=== PATIENT | female | born 1975 | race Caucasian/White ===

== ENCOUNTER 2017-02-25 21:13 | Emergency (ER) | payer OTHER ==
[2017-02-25] MEDS ORDERED: Sodium Chloride 0.9% 1000 ML 1,000 ML IV STA (21:57)
[2017-02-25] MEDS ORDERED: Zofran 4 MG/2 ML VIAL IV ONE (21:57)
[2017-02-25] MEDS ORDERED: Zofran 4 MG/2 ML VIAL ONE (22:05)
[2017-02-25] MEDS ORDERED: Sodium Chloride 0.9% 1000 ML 1,000 ML ONE (22:05)
--- NOTE | 2017-02-25 22:05 | ERPHSYRPT ---
- History of Present Illness Time Seen by Provider: 02/25/17 21:50 Historian: patient Exam Limitations: no limitations Patient Subjective Stated Complaint: PER PATIENT C/O INTERMITENT RIGHT UPPER QUAD PAIN WITH NAUSEA X5 MONTHS Triage Nursing Assessment: NO FEVER, VSS SLIGHTLY TACHY, FAMILY IN ROOM, AOX3, Physician History: FOR THE PAST 6 MONTHS PT HAS HAD CONSTANT RUQ ABDOMINAL PAIN SOMETIMES SHARP AND SOMETIMES ACHY WITH DAILY NAUSEA AND VOMITING AND OCCASIONAL DIARRHEA. PT VOMITED X3 TODAY WITHOUT BLOOD. LAST BM WAS TODAY AND NOT DIARRHEAL AND WAS WITHOUT BLOOD. PT HAD A CHOLECYSTECTOMY IN 2004 AT [facility]. PT DENIES SHORTNESS OF AIR, CHEST PAIN, FEVER. Allergies/Adverse Reactions: Penicillins Allergy (Unknown, Verified 02/25/17 22:03) Immunizations Up to Date: Yes - Review of Systems Constitutional: No Fever Respiratory: No Dyspnea Cardiac: No Chest Pain Abdominal/Gastrointestinal: Abdominal Pain, Nausea, Vomiting, Diarrhea ( OCCASIONAL) All Other Systems: Reviewed and Negative - Past Medical History Pertinent Past Medical History: No Neurological History: No Pertinent History ENT History: No Pertinent History Cardiac History: No Pertinent History Respiratory History: No Pertinent History Endocrine Medical History: No Pertinent History Musculoskeletal History: Arthritis GI Medical History: No Pertinent History History: No Pertinent History Psycho-Social History: Anxiety, Depression Female Reproductive Disorders: Endometriosis - Past Surgical History Past Surgical History: Yes Neuro Surgical History: No Pertinent History Cardiac: No Pertinent History Respiratory: No Pertinent History Gastrointestinal: Cholecystectomy Genitourinary: No Pertinent History Musculoskeletal: No Pertinent History Female Surgical History: No Pertinent History - Social History Smoking Status: Current every day smoker How long have you smoked: 1/2 PPD Exposure to second hand smoke: Yes Drug Use: none Patient Lives Alone: No - Female History Hx Last Menstrual Period: T-18 - Nursing Vital Signs Nursing Vital Signs: Initial Vital Signs Temperature 98.8 F Temperature Source Oral Pulse Rate 105 Respiratory Rate 12 Blood Pressure [Right Arm] 120/70 Pain Intensity 9 - Physical Exam General Appearance: alert Eye Exam: PERRL/EOMI Ears, Nose, Throat Exam: pharynx normal, moist mucous membranes Neck Exam: normal inspection Respiratory Exam: lungs clear Cardiovascular Exam: tachycardia Gastrointestinal/Abdomen Exam: soft, normal bowel sounds, tenderness (MILD RUQ ABDOMINAL TENDERNESS), No guarding Back Exam: normal range of motion Extremity Exam: normal inspection, No pedal edema Neurologic Exam: alert, cooperative Skin Exam: warm, dry SpO2 Interpretation: normal SpO2: 98 Oxygen Delivery: Room Air - Course Nursing assessment & vital signs reviewed: Yes EKG Interpreted by Me: RATE ([id number]), Sinus Tach, NORMAL AXIS, NORMAL INTERVALS - CT Exams Abdomen/Pelvis CT Interpretation: Tele-radiologist Report (NO ACUTE FINDINGS) Ordered Tests: Active Orders 24 hr Category Date Time Status Clean Catch Urine Specimen STAT Care 02/25/17 21:48 Active EKG-ER Only STAT Care 02/25/17 21:29 Active IV Insertion STAT Care 02/25/17 21:29 Active ABDOMEN AND PELVIS W/0 CONTRAS [CT] Stat Exams 02/25/17 21:59 Taken CHEST 2 VIEWS (PA AND LAT) Stat Exams 02/25/17 22:00 Taken AMYLASE Stat Lab 02/25/17 21:45 Completed CBC W DIFF Stat Lab 02/25/17 21:45 Completed CMP Stat Lab 02/25/17 21:45 Completed HCG QUALITATIVE,SERUM Stat Lab 02/25/17 21:45 Completed LIPASE Stat Lab 02/25/17 21:45 Completed MAG [MAGNESIUM] Stat Lab 02/25/17 21:45 Completed TROPONIN Stat Lab 02/25/17 21:45 Completed UA W/RFX UR CULTURE Stat Lab 02/25/17 21:50 Completed Urine Triage Profile Stat Lab 02/25/17 21:58 Completed Medication Summary Discontinued Medications Generic Name Dose Route Start Last Admin Trade Name Freq PRN Reason Stop Dose Admin Sodium Chloride 1,000 mls @ 999 mls/hr 02/25/17 21:57 02/25/17 22:06 Sodium Chloride 0.9% 1000 Ml IV 02/25/17 22:57 999 mls/hr .Q1H1M STA Administration Sodium Chloride Confirm 02/25/17 22:05 Sodium Chloride 0.9% 1000 Ml Administered 02/25/17 22:06 Dose 1,000 mls @ ud .ROUTE .STK-MED ONE Ketorolac Tromethamine 30 mg 02/25/17 22:44 02/25/17 22:47 Toradol 30 Mg Injection IV 02/25/17 22:45 30 mg STAT ONE Administration Ketorolac Tromethamine Confirm 02/25/17 22:46 Toradol 30 Mg Injection Administered 02/25/17 22:47 Dose 30 mg .ROUTE .STK-MED ONE Ondansetron HCl 4 mg 02/25/17 21:57 02/25/17 22:06 Zofran 4 Mg/2 Ml Vial IV 02/25/17 21:58 4 mg STAT ONE Administration Ondansetron HCl Confirm 02/25/17 22:05 Zofran 4 Mg/2 Ml Vial Administered 02/25/17 22:06 Dose 4 mg .ROUTE .STK-MED ONE Lab/Rad Data: Laboratory Result Diagrams 02/25/17 21:45 02/25/17 21:45 Laboratory Results 02/25/17 02/25/17 02/25/17 Range/Units 21:58 21:50 21:45 WBC (4.0-10.5) K/mm3 RBC (4.1-5.4) M/mm3 Hgb (12.0-16.0) gm/dl Hct (35-47) % MCV (78-100) fl MCH (26-32) pg MCHC (32-36) g/dl RDW (11.5-14.0) % Plt Count (150-450) K/mm3 MPV (6-9.5) fl Gran % (36.0-66.0) % Lymphocytes % (24.0-44.0) % Monocytes % (0.0-12.0) % Eosinophils % (0.00-5.0) % Basophils % (0.0-0.4) % Basophils # (0-0.4) Sodium (136-145) mEq/L Potassium (3.5-5.1) mEq/L Chloride (98-107) mEq/L Carbon Dioxide (21-32) mEq/L Anion Gap (5-15) MEQ/L BUN (9-20) mg/dL Creatinine (0.55-1.30) mg/dl Estimated GFR ML/MIN Glucose (70-110) MG/DL Calcium (8.5-10.1) mg/dL Magnesium 1.8 (1.8-2.4) mg/dL Total Bilirubin (0.2-1.0) mg/dL AST (15-37) U/L ALT (12-78) U/L Alkaline Phosphatase (46-116) U/L Troponin I (0.000-0.056) ng/ml Serum Total Protein (6.4-8.2) gm/dL Albumin (3.4-5.0) g/dL Amylase (25-115) U/L Lipase (73-393) U/L Serum , Qual (Negative) Ur Collection Type CLEAN CATCH Urine Color YELLOW (YELLOW) Urine Appearance CLEAR (CLEAR) Urine pH 7.0 (5-6) Ur Specific [place] 1.020 (1.005-1.025) Urine Protein NEGATIVE (Negative) Urine Glucose (UA) NEGATIVE (NEGATIVE) mg/dL Urine Ketones NEGATIVE (NEGATIVE) Urine Nitrite NEGATIVE (NEGATIVE) Urine Bilirubin NEGATIVE (NEGATIVE) Urine Urobilinogen 0.2 (0-1) mg/dL Urine WBC (Auto) NEGATIVE (NEGATIVE) Urine RBC (Auto) NEGATIVE (0-5) Darrell/ul Urine Opiates Level NEG. (NEGATIVE) Ur Methadone NEG. (NEGATIVE) Urine Barbiturates NEG. (NEGATIVE) Ur Phencyclidine (PCP) NEG. (NEGATIVE) Urine Amphetamine NEG. (NEGATIVE) U Benzodiazepine Level NEG. (NEGATIVE) Urine Cocaine NEG. (NEGATIVE) Urine Marijuana (THC) NEG. (NEGATIVE) Specimen Received [id number] 02/25/17 02/25/17 02/25/17 Range/Units 21:45 21:45 21:45 WBC 12.4 H (4.0-10.5) K/mm3 RBC 4.85 (4.1-5.4) M/mm3 Hgb 14.8 (12.0-16.0) gm/dl Hct 43.9 (35-47) % MCV 90.5 (78-100) fl MCH 30.5 (26-32) pg MCHC 33.7 (32-36) g/dl RDW 14.5 H (11.5-14.0) % Plt Count 274 (150-450) K/mm3 MPV 10.6 H (6-9.5) fl Gran % 61.1 (36.0-66.0) % Lymphocytes % 30.0 (24.0-44.0) % Monocytes % 7.2 (0.0-12.0) % Eosinophils % 1.4 (0.00-5.0) % Basophils % 0.3 (0.0-0.4) % Basophils # 0.04 (0-0.4) Sodium 140 (136-145) mEq/L Potassium 3.6 (3.5-5.1) mEq/L Chloride 103 (98-107) mEq/L Carbon Dioxide 23.7 (21-32) mEq/L Anion Gap 16.4 H (5-15) MEQ/L BUN 15 (9-20) mg/dL Creatinine 1.04 (0.55-1.30) mg/dl Estimated GFR > 60 ML/MIN Glucose 111 H (70-110) MG/DL Calcium 9.0 (8.5-10.1) mg/dL Magnesium (1.8-2.4) mg/dL Total Bilirubin 0.20 (0.2-1.0) mg/dL AST 7 L (15-37) U/L ALT 15 (12-78) U/L Alkaline Phosphatase 87 (46-116) U/L Troponin I < 0.017 (0.000-0.056) ng/ml Serum Total Protein 7.7 (6.4-8.2) gm/dL Albumin 3.3 L (3.4-5.0) g/dL Amylase 108 (25-115) U/L Lipase 290 (73-393) U/L Serum , Qual NEGATIVE (Negative) Ur Collection Type Urine Color (YELLOW) Urine Appearance (CLEAR) Urine pH (5-6) Ur Specific [place] (1.005-1.025) Urine Protein (Negative) Urine Glucose (UA) (NEGATIVE) mg/dL Urine Ketones (NEGATIVE) Urine Nitrite (NEGATIVE) Urine Bilirubin (NEGATIVE) Urine Urobilinogen (0-1) mg/dL Urine WBC (Auto) (NEGATIVE) Urine RBC (Auto) (0-5) Darrell/ul Urine Opiates Level (NEGATIVE) Ur Methadone (NEGATIVE) Urine Barbiturates (NEGATIVE) Ur Phencyclidine (PCP) (NEGATIVE) Urine Amphetamine (NEGATIVE) U Benzodiazepine Level (NEGATIVE) Urine Cocaine (NEGATIVE) Urine Marijuana (THC) (NEGATIVE) Specimen Received - Departure Time of Disposition: 23:42 Departure Disposition: Home Clinical Impression: ABDOMINAL PAIN, VOMITING Condition: Fair Critical Care Time: No Instructions: Abdominal Pain-Adult, Vomiting -- Adult Additional Instructions: FOLLOW UP WITH PRIVATE DOCTOR TOMORROW. Prescriptions: Promethazine HCl 25 mg [Phenergan 25 mg] 25 mg PO Q4H PRN PRN #14 tablet PRN Reason: Nausea/Vomiting
[2017-02-25 22:14] VITALS: BP 120/70; PULSE 105
[2017-02-25 22:26] LABS: BASOPHIL % 0.3 % (0.0-0.4); Eosinophil % 1.4 % (0.00-5.0); Granulocytes % 61.1 % (36.0-66.0); Mean Cell Volume 90.5 fl (78-100); Mean Corpuscular Hemoglobin 30.5 pg (26-32); Mean Platelet Volume 10.6 fl (6-9.5); Monocytes % 7.2 % (0.0-12.0); Platelet Count 274 K/mm3 (150-450); Red Blood Count 4.85 M/mm3 (4.1-5.4); Red Cell Distribution Width 14.5 % (11.5-14.0); White Blood Count 12.4 K/mm3 (4.0-10.5)
[2017-02-25] MEDS ORDERED: TORAdol 30 mg Injection IV ONE (22:44)
[2017-02-25] MEDS ORDERED: TORAdol 30 mg Injection ONE (22:46)
[2017-02-25 22:47] LABS: ALBUMIN 3.3 g/dL (3.4-5.0); ALKALINE PHOSPHATASE 87 U/L (46-116); ANION GAP 16.4 MEQ/L (5-15); BLOOD UREA NITROGEN 15 mg/dL (9-20); CHLORIDE 103 mEq/L (98-107); Carbon Dioxide 23.7 mEq/L (21-32); Glucose 111 MG/DL (70-110); LIPASE 290 U/L (73-393); Potassium 3.6 mEq/L (3.5-5.1); SGOT/AST 7 U/L (15-37); SGPT/ALT 15 U/L (12-78); SODIUM 140 mEq/L (136-145); Total Protein 7.7 gm/dL (6.4-8.2)
[2017-02-25 22:50] LABS: TROPONIN < 0.017 ng/ml (0.000-0.056)
[2017-02-25 22:52] LABS: ADD URINE CULTURE? NO (NO); COMPLETE URINE MICROSCOPIC? NO; Collection Type CLEAN CATCH
[2017-02-25 23:43] VITALS: O2SAT 98
--- NOTE | 2017-02-26 07:43 | XRAY ---
Indication: Tachycardia. Right upper quadrant pain. Comparison: None PA/lateral chest demonstrates normal heart and lungs. Bony thorax intact with minimal scoliosis.
--- NOTE | 2017-02-26 07:45 | XRAY ---
Indication: Six-month right upper quadrant abdominal pain. Nausea, vomiting, and diarrhea. Multiple contiguous axial images obtained through the abdomen and pelvis without contrast as ordered. Comparison: None Lung bases are clear. Heart is not enlarged. Stomach is distended with food. Noncontrasted bowel loops appear nonobstructed. There is moderate diffuse scattered colonic fecal debris. Normal appendix. No free fluid/air. There has been previous cholecystectomy. Remaining liver, pancreas, spleen, adrenal glands, kidneys, ureters, bladder, uterus, ovaries, and aorta appear unremarkable for noncontrast exam. Osseous structures intact. Impression: 1. Fecal stasis without obstruction. 2. No acute intra-abdominal/pelvic abnormalities on this noncontrast exam. Comment: Preliminary interpretation was made by [facility]. No critical discrepancy. CTDI 22.44
== END 2017-02-25 23:50 | disposition home or self-care (01) ==
LOC: ED 21:13
DX: R10.11 Right upper quadrant pain (principal); R11.2 Nausea with vomiting, unspecified
CPT/HCPCS: 36000; 36415; 71020; 74176; 80053; 80307; 81002; 82150; 83690; 83735; 84484; 84703; 85025; 93005; 96360; 96374; 96375; 99284; J1885; J2405